=== PATIENT | female | born 1995 | race Caucasian/White ===

== ENCOUNTER 2016-06-19 07:36 | Emergency (ER) | payer MEDICAID ==
[2016-06-19 07:51] VITALS: BP 126/80
--- NOTE | 2016-06-19 08:22 | UC ---
Jake Mast [place], [facility] on 06/19/16 at 0809 . GI Bleed HPI - HPI Summary HPI Summary: HPI: Patient is a 20 y/o female who presents to the with hematuria for the past 2 days. She denies dysuria, but complaints of left lower back pain referred from her left inguinal area with left leg movement. Patient is 34 weeks ( primigravida) and is due on August 01. She reports vaginal discharge, but nothing unusual. Pt denies a hx of pyelonephritis. note: VSS, afebrile, post ox: 100%, 5/10 lower abdominal discomfort. Negative EtOH, former smoker. 34 weeks . Hep C. hx: depression. Visit review: previous UTI visits. No antibiotic allergies. Hx of asthma. Nurses note: Blood in urine. Lower abd cramping. - History Of Current Complaint Stated Complaint: BLOOD IN URINE CRAMPING 34 WEEKS PREG Time Seen by Provider: 06/19/16 07:41 Hx Obtained From: Patient Hx Last Menstrual Period: 10/26/15 Onset/Duration: Gradual Onset, Lasting Days Severity Initially: Moderate Severity Currently: Moderate Associated Pain: Discrete @ - Left back pain. Associated Signs And Symptoms: Positive: Other - Hematuria. 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 Psychological History Of: Reports: Depression Other History Of: Hepatitis C - Surgical History Surgical History: None - Family History Known Family History: Positive: Cardiac Disease, Hypertension, Diabetes - Social History Alcohol Use: None Substance Use Type: None Smoking Status (MU): Former Smoker Type: Cigarettes Amount Used/How Often: 1/2 ppd Length of Time of Smoking/Using Tobacco: 2 years Have You Smoked in the Last Year: Yes When Did the Patient Quit Smoking/Using Tobacco: 12/2014 Household Exposure Type: Cigarettes - Immunization History Most Recent Influenza Vaccination: years ago Most Recent Tetanus Shot: UNSURE Most Recent Pneumonia Vaccination: never Review of Systems Constitutional: Negative Skin: Other - Rash on medial aspect of right thigh. Genitourinary: Hematuria All Other Systems Reviewed And Are Negative: Yes Physical Exam Triage Information Reviewed: Yes Appearance: Well-Appearing, No Pain Distress, Well-Nourished Vital Signs: Initial Vital Signs Temp 97.6 F 06/19/16 07:38 Pulse 87 06/19/16 07:38 Resp 16 06/19/16 07:38 BP 126/80 06/19/16 07:38 Pulse Ox 100 06/19/16 07:38 Vital Signs Reviewed: Yes Eyes: Positive: Conjunctiva Clear ENT: Positive: Hearing grossly normal, Pharynx normal, TMs normal. Negative: Muffled/hoarse voice Neck: Positive: Supple, Nontender, No Lymphadenopathy Respiratory: Positive: Chest non-tender, Lungs clear, Normal breath sounds, No respiratory distress Cardiovascular: Positive: RRR, No Murmur Abdomen Description: Positive: Nontender, Other: - No discomfort over the bladder. LOCALIZED TENDERNESS OF INGUINAL REGION ON THE LEFT, PRECIPITATED BY FLEXION OF HIP AND RADIATES TO LOWER BACK.. Negative: CVA Tenderness (R), CVA Tenderness (L) Bowel Sounds: Positive: Present Musculoskeletal: Positive: Strength Intact, Other: - MART. Neurological: Positive: Alert Psychological: Positive: Age Appropriate Behavior Skin: Positive: rashes - MACULOPAPULAR RASH ON INNER ASPECT OF RIGHT THIGH WITH A MIRROR RASH ON THE LEFT INNER THIGH. Bleed Course/Dx - Course Course Of Treatment: Differential diagnosis: Pyelonephritis vs abd pain vs UTI. - Differential Dx/Diagnosis Provider Diagnoses: UTI. Contact dermatitis. Discharge - Discharge Plan Condition: Stable Disposition: HOME Prescriptions: Amoxicillin (*) [Amoxicillin 875 MG (*)] 875 mg PO BID #10 tab MDD 2 Patient Education Materials: Urinary Tract Infection in (ED) Additional Instructions: WE DISCUSSED: You have a bladder infection. I have given you amoxicillin for five days, one pill twice a day. Re check in 2 days if you are not improved. You may need a different antibiotic depending on your urine culture. Use hydrocortisone and an anti-fungal on your rash on both sides of your inner thighs. Re check at any time for increased pain or temperature. The documentation as recorded by the Jake villarreal,[place] accurately reflects the service I personally performed and the decisions made by me, Dillon Mcneil MD.
== END 2016-06-19 08:11 | disposition home or self-care (01) ==
LOC: UCEAST 07:36
DX: O99.89 Other specified diseases and conditions complicating pregnancy, childbirth and the puerperium (principal); R31.9 Hematuria, unspecified; O99.713 Diseases of the skin and subcutaneous tissue complicating pregnancy, third trimester; L25.9 Unspecified contact dermatitis, unspecified cause; Z3A.34 34 weeks gestation of pregnancy; Z88.5 Allergy status to narcotic agent; Z87.891 Personal history of nicotine dependence; Z86.19 Personal history of other infectious and parasitic diseases
CPT/HCPCS: 81003; 87086; 99212; G0463

== ENCOUNTER 2017-03-17 19:15 | Emergency (ER) | payer OTHER ==
[2017-03-17 19:29] VITALS: BP 110/63
--- NOTE | 2017-03-17 19:47 | UC ---
Complaint Female HPI - HPI Summary HPI Summary: 21 y/o female presents to the urgent care c/o vaginal discharge with itchiness. Pt reports she went to [facility] last Tuesday03/11/2017 for STD's screening and Dx BV and Rx Metronidazole PO. she started to take ABX on Tuesday and her vaginal discharge has worsen for the past 2 days. She thinks she has a yeast infection. [facility] and she wa [facility] D[facility]. It helped a little but she wants to make sure it is a yeast infection. She had Hx of Herpes and chlamydia but she was treated. She also has frequency and burning on urination. Pt denies fever, lower back pain, pelvic pain. chest pain, abdominal pain,N/V/D - History Of Current Complaint Chief Complaint: UCGU Stated Complaint: VAGINAL RASH Time Seen by Provider: 03/17/17 19:31 Hx Obtained From: Patient Hx Last Menstrual Period: 02/20/17 ?: No Onset/Duration: Gradual Onset, Lasting Weeks - 1 week, Still Present, Worse Since - 2 days Timing: Constant, Lasting Days Severity Initially: Mild Severity Currently: Moderate Pain Intensity: 4 Pain Scale Used: 0-10 Numeric Character: Burning - and itchiness Alleviating Factor(s): Other - diflucan PO Associated Signs And Symptoms: Positive: Vaginal Discharge, Genital Swelling. Negative: Fever, Back Pain, Vaginal Bleeding/Discharge - Risk Factors Ectopic Risk Factor: Negative Ovarian Torsion Risk Factor: Negative - Allergies/Home Medications Allergies/Adverse Reactions: Allergies Allergy/AdvReac Type Severity Reaction Status Date / Time Tramadol AdvReac Severe See Comment Verified 03/17/17 19:21 Home Medications: Home Medications metroNIDAZOLE TAB* [Flagyl 250 mg TAB*] 250 mg BID 03/17/17 [History Confirmed 03/17/17] PMH/Surg Hx/FS Hx/Imm Hx Previously Healthy: Yes Other GI/ History: Hep C , herpes, chlamydia Other History Of: Hepatitis C - Surgical History Surgical History: None - Family History Known Family History: Positive: Cardiac Disease, Hypertension, Diabetes - Social History Occupation: Employed Full-time Lives: With Family Alcohol Use: None Substance Use Type: None Substance Use Comment - Amount & Last Used: previous intravenous drug use; Hep C positive 2013 Smoking Status (MU): Former Smoker Type: Cigarettes Amount Used/How Often: 1/2 ppd Length of Time of Smoking/Using Tobacco: 2 years Have You Smoked in the Last Year: Yes When Did the Patient Quit Smoking/Using Tobacco: 12/2014 Household Exposure Type: Cigarettes - Immunization History Most Recent Influenza Vaccination: 03/2016 Most Recent Tetanus Shot: UNSURE Most Recent Pneumonia Vaccination: never Review of Systems Constitutional: Negative Skin: Negative Eyes: Negative ENT: Negative Respiratory: Negative Cardiovascular: Negative Gastrointestinal: Negative Genitourinary: Frequency, Urgency, Vaginal/Penile Burning, Vaginal/Penile Itching, Vaginal/Penile Discharge, Ulceration/Lesion - rash in the labia majora that erickson at itches Motor: Negative Neurovascular: Negative Musculoskeletal: Negative Neurological: Negative Psychological: Negative Is Patient Immunocompromised?: No All Other Systems Reviewed And Are Negative: Yes Physical Exam Triage Information Reviewed: Yes Vital Signs: Initial Vital Signs Temp 99.4 F 03/17/17 19:24 Pulse 84 03/17/17 19:24 Resp 18 03/17/17 19:24 BP 110/63 03/17/17 19:24 Pulse Ox 100 03/17/17 19:24 - Additional Comments General: Normotensive, in no acute distress. Head: Normocephalic, no lesions. Eyes: PERRLA, EOM's full, conjunctivae clear, fundi grossly normal. Ears: EAC's clear, TM's normal. Nose: Mucosa normal, no obstruction. Throat: Clear, no exudates, no lesions. Neck: Supple, no masses, no thyromegaly, no bruits. Chest: Lungs clear, no rales, no rhonchi, no wheezes. Heart: RR, no murmurs, no rubs, no gallops. Abdomen: Soft, no tenderness, no masses, BS normal. : Normal, no lesions, no discharge, no hernias noted. Pelvic: I was assisted by Nurse. External genitalia erythemaotus eruption w/ some scattered vesicles on both labia majora LF>RT. severe tenderness to palpation. swab sample taken from rash. Speculum exam: The vaginal malone are within normal limits w/ white creamy cottage cheese vaginal discharge vaginal discharge, no the lesions or rashes. The cervix is closed with no lesions or masses. There is no CMT's, and no adnexal masses. Rectal: No lesions, no hemorrhoids, Back: Normal curvature, no tenderness. Extremities: FROM, no deformities, no edema, no erythema. Neuro: Physiological, no localizing findings. Skin: Normal, no rashes, no lesions noted. Complaint Female Dx - Course Course Of Treatment: 21 y/o female presents to the urgent care c/o vaginal discharge with itchiness. Pt reports she went to [facility] last 03/11[facility]2017 for STD's screening and Dx BV and Rx Metronidazole PO. she started to take ABX on Tuesday and her vaginal discharge has worsen for the past 2 days. She thinks she has a yeast infection. She called [facility] and she wa Rx Diflucan. It helped a little but she wants to make sure it is a yeast infection. She had Hx of Herpes and chlamydia but she was treated. She also has frequency and burning on urination. Pt denies fever, lower back pain, pelvic pain. chest pain, abdominal pain,N/V/D. Hx obtained. Swab taken from genital rash and blisters and sent to lab for wound culture to r/o herpes. UA: 2+ trace leukoesterase, trace blood. DR Padilla consulted on Pt;s genital rash and she recommended Tx with Acyclovir PO. Pt given first dose of Acyclovir PO at the clinic to Tx prophylactically Herpes . Pt tolerated well mediction. Rx Acyclovir PO, Fluconazole PO for Candidiasis. Rx Ketoconazole toipical cream to Tx other part of the rash that looks Tinea crutis.Urine sent for culture to r/o any abnomality.Pt educated on STD's and protection. Pt advised to f/u results of STDs screening and PAP done at [facility] about 1 week ago. Advised she will be notified if any abnormal result from lab. Pt understood and agreed with plan of care. - Differential Dx/Diagnosis Differential Diagnosis/HQI/PQRI: Cervicitis, Renal Colic, Sexually Transmitted Disease, Urinary Tract Infection, Other - vaginosis Provider Diagnoses: 1- genital rash r/o herpes simplex II. 2- Bulbo vaginal Candidiasis - Physician Notifications Discussed Patient Care With: Terra Padilla - DR Padilla agreed with Pt's plan of care Discharge - Discharge Plan Condition: Stable Disposition: HOME Prescriptions: Amoxicillin/Clavulanate TAB* [Augmentin TAB 875*] 875 mg PO BID #20 tab Fluconazole [Diflucan 150 MG (NF)] 150 mg PO ONCE #1 tab Fluconazole [Diflucan 150 MG (NF)] 150 mg PO ONCE #1 tab Ketoconazole 2 % CREAM (NF) [Nizoral 2% CREAM (NF)] 1 applic TOPICAL BID #1 tube ValACYclovir (*) [Valtrex 1 GM(*)] 1 gm PO BID #20 tab Patient Education Materials: Genital Herpes Simplex (ED), Vulvovaginal Candidiasis (ED) Referrals: [facility] [place]] - 2 Days No Primary Care Phys,NOPCP [Primary Care Provider] - Additional Instructions: 1- Please take Valacyclovir PO x 10 days as directed, 2- Apply the Ketoconazole topical cream in the ring rash as directed to alleviate symptoms. Take the Diflucan PO to alleviate vaginal discharge. finish the Metronidazole PO 2- Sample and Blood sent to lab if any abnormality, you will be notified for further treatment. 3-If symptoms do not improve please return to the urgent care or f/u with her PCP in 2-3 days. However is you develop fever severe pain and infection is worsen please go immediately to the ER for further treatment.
[2017-03-17] MEDS ORDERED: Acyclovir* 400 MG TAB PO ONE (20:47)
[2017-03-17] MEDS ORDERED: Acyclovir* 200 MG CAP PO ONE (20:59)
[2017-03-19 13:12] LABS: Herpes Simplex Virus I IgG AB Positive (Negative); Herpes Simplex Virus II IgG AB Equivocal (Negative)
--- NOTE | 2017-03-19 15:50 | UC ---
Progress - Progress Note Progress Note: call patient HSV 1 (+) and preliminary urine cx showed staph/strep so I will call in augmentin.
--- NOTE | 2017-03-20 16:41 | UC ---
Progress - Progress Note Progress Note: call patient HSV 1 (+) and preliminary urine cx showed staph/strep so I will call in augmentin. 03/20/17 ucx showed staph and Augmentin sensitive
== END 2017-03-17 20:53 | disposition home or self-care (01) ==
LOC: UCEAST 19:15
DX: B37.3 Candidiasis of vulva and vagina (principal); Z86.19 Personal history of other infectious and parasitic diseases; R35.0 Frequency of micturition; R30.0 Dysuria; Z88.5 Allergy status to narcotic agent; Z87.891 Personal history of nicotine dependence
CPT/HCPCS: 81003; 86695; 86696; 87077; 87086; 87186; 87529; 99212; A9270-GY; G0463

== ENCOUNTER 2017-04-30 12:16 | Emergency (ER) | payer SELFPAY ==
[2017-04-30 14:07] VITALS: BP 139/83
--- NOTE | 2017-04-30 14:19 | UC ---
Nausea/Vomiting/Diarrhea HPI - HPI Summary HPI Summary: Pt presents with vomiting and diarrhea since last night. She has not vomited yet today. Her son is also sick with the similar complaints, but he is well today. She has eaten toast and soup today without difficulties. She says that she still feels nauseous with mild epigastric pain. Denies fever, chills, SOB, chest pain, dysuria, hematuria, vaginal pain/bleeding, pelvic pain, or recent illness. - History of Current Complaint Chief Complaint: UCGI Stated Complaint: VOMITTING Time Seen by Provider: 04/30/17 14:18 Hx Obtained From: Patient Hx Last Menstrual Period: 02/20/17 Onset/Duration: Sudden Onset Timing: Constant Severity Initially: Mild Severity Currently: Mild Pain Intensity: 3 Pain Scale Used: 0-10 Numeric Location: Epigastric Character: Cramping - Allergies/Home Medications Allergies/Adverse Reactions: Allergies Allergy/AdvReac Type Severity Reaction Status Date / Time Tramadol AdvReac Severe See Comment Verified 04/30/17 14:07 PMH/Surg Hx/FS Hx/Imm Hx Previously Healthy: Yes Other History Of: Hepatitis C - Surgical History Surgical History: None - Family History Known Family History: Positive: None, Cardiac Disease, Hypertension, Diabetes - Social History Lives: With Family Alcohol Use: Occasionally Substance Use Type: None Substance Use Comment - Amount & Last Used: previous intravenous drug use; Hep C positive 2013 Smoking Status (MU): Former Smoker Type: Cigarettes Amount Used/How Often: 1/2 ppd Length of Time of Smoking/Using Tobacco: 2 years Have You Smoked in the Last Year: Yes When Did the Patient Quit Smoking/Using Tobacco: 12/2014 Household Exposure Type: Cigarettes - Immunization History Most Recent Influenza Vaccination: 03/2016 Most Recent Tetanus Shot: UNSURE Most Recent Pneumonia Vaccination: never Review of Systems Constitutional: Negative Skin: Negative ENT: Negative Respiratory: Negative Cardiovascular: Negative Gastrointestinal: Abdominal Pain, Vomiting, Diarrhea, Nausea Neurovascular: Negative Musculoskeletal: Negative Neurological: Negative Psychological: Negative All Other Systems Reviewed And Are Negative: Yes Physical Exam Triage Information Reviewed: Yes Appearance: Well-Appearing, No Pain Distress, Well-Nourished Vital Signs: Initial Vital Signs Temp 97.9 F 04/30/17 14:03 Pulse 116 04/30/17 14:03 Resp 18 04/30/17 14:03 BP 139/83 04/30/17 14:03 Pulse Ox 98 04/30/17 14:03 Vital Signs Reviewed: Yes Eyes: Positive: Conjunctiva Clear. Negative: Conjunctiva Inflamed, Discharge ENT: Positive: Hearing grossly normal, Pharynx normal, TMs normal, Uvula midline. Negative: Pharyngeal erythema, Nasal congestion, Nasal drainage, TM bulging, TM dull, TM red, Tonsillar swelling, Tonsillar exudate, Sinus tenderness Neck: Positive: Supple, Nontender, No Lymphadenopathy Respiratory: Positive: Chest non-tender, Lungs clear, Normal breath sounds, No respiratory distress, No accessory muscle use Cardiovascular: Positive: No Murmur, Pulses Normal, Brisk Capillary Refill Abdomen Description: Positive: No Organomegaly, Soft, Other: - Mild epigatric TTP. Negative: CVA Tenderness (R), CVA Tenderness (L), Distended, Guarding, McBurney's Point Tenderness, Peritoneal Signs, Splenomegaly Bowel Sounds: Positive: Present Neurological: Positive: Alert. Negative: Fatigued Psychological: Positive: Age Appropriate Behavior Skin: Negative: rashes Naus/Vom/Diarrhea Course/Dx - Course Course Of Treatment: Suspect viral gastroenteritis. She has not vomited today and is already advancing her diet. Will provide her with zofran for her nausea. - Differential Dx/Diagnosis Provider Diagnoses: Viral gastroenteritis Condition At Discharge: Stable Discharge - Discharge Plan Condition: Stable Disposition: HOME Prescriptions: Ondansetron ODT TAB* [Zofran 4 MG Odt TAB*] 4 mg PO Q8H PRN #12 tab.odt PRN Reason: Nausea Patient Education Materials: Gastroenteritis (ED) Referrals: No Primary Care Phys,NOPCP [Primary Care Provider] - Additional Instructions: If you develop a fever, shortness of breath, chest pain, abdominal pain, new or worsening symptoms - please call your PCP or go to the ED. 1) Rest and drink plenty of water! 2) Advance diet as tolerated.
== END 2017-04-30 14:40 | disposition home or self-care (01) ==
LOC: UCEAST 12:16
DX: A08.4 Viral intestinal infection, unspecified (principal); Z88.5 Allergy status to narcotic agent; Z86.19 Personal history of other infectious and parasitic diseases; Z87.891 Personal history of nicotine dependence
CPT/HCPCS: 99212; G0463

== ENCOUNTER 2017-05-19 12:43 | Emergency (ER) | payer SELFPAY | END 2017-05-19 15:47 | disposition left against medical advice (07) | LOC: UCEAST 12:43 | DX: R56.9 Unspecified convulsions (principal); Z53.21 Procedure and treatment not carried out due to patient leaving prior to being seen by health care provider ==

== ENCOUNTER 2017-12-13 14:36 | Emergency (ER) | payer OTHER ==
[2017-12-13 14:47] VITALS: BP 132/72
--- NOTE | 2017-12-13 14:52 | UC ---
Complaint Female HPI - HPI Summary HPI Summary: 22 y/o female presents to the urgent care requesting STD's screening since her boyfriend was recently Dx w/ trichomonas. Pt has mild vaginal discharge w/ itchiness for the past week. LMP: 11/26/2017 w/ regular menstrual cycles and take OCP. Pt denies Hx of DTD's in the past. Pt denies pelvic pain, lower back pain,urinary symptoms, abdominal pain, N/V/D. - History Of Current Complaint Chief Complaint: UCGU Stated Complaint: VAGINAL DISCHARGE Time Seen by Provider: 12/13/17 14:50 Hx Obtained From: Patient Hx Last Menstrual Period: november 26, 2017 ?: No - taking OCP Onset/Duration: Gradual Onset, Lasting Days - 2 days, Still Present, Worse Since - today Timing: Constant Severity Initially: Mild Severity Currently: Moderate Pain Intensity: 2 Pain Scale Used: 0-10 Numeric Character: Burning Aggravating Factor(s): Urination Alleviating Factor(s): Nothing Associated Signs And Symptoms: Positive: Vaginal Discharge. Negative: Fever, Back Pain, Genital Swelling, Genital Blisters - Risk Factors Ectopic Risk Factor: Negative Ovarian Torsion Risk Factor: Negative - Allergies/Home Medications Allergies/Adverse Reactions: Allergies Allergy/AdvReac Type Severity Reaction Status Date / Time tramadol Allergy Severe seizures Verified 12/15/17 15:12 Home Medications: Home Medications Contol 1 tab PO DAILY WITH MEAL 12/13/17 [History Confirmed 12/13/17] PMH/Surg Hx/FS Hx/Imm Hx Previously Healthy: Yes Respiratory History: Asthma - controlled Other History Of: Hepatitis C - Surgical History Surgical History: None Surgery Procedure, Year, and Place: denies - Family History Known Family History: Positive: Cardiac Disease, Hypertension, Diabetes - Social History Occupation: Employed Full-time Lives: With Family Alcohol Use: Occasionally Substance Use Type: None Substance Use Comment - Amount & Last Used: previous intravenous drug use; Hep C positive 2013 Smoking Status (MU): Former Smoker Type: Cigarettes Amount Used/How Often: 1/2 ppd Length of Time of Smoking/Using Tobacco: 2 years Have You Smoked in the Last Year: Yes When Did the Patient Quit Smoking/Using Tobacco: 12/2014 Household Exposure Type: Cigarettes - Immunization History Most Recent Influenza Vaccination: 03/2016 Most Recent Tetanus Shot: UNSURE Most Recent Pneumonia Vaccination: never Review of Systems Constitutional: Negative Skin: Negative Eyes: Negative ENT: Negative Respiratory: Negative Cardiovascular: Negative Gastrointestinal: Negative Genitourinary: Frequency, Urgency, Vaginal/Penile Itching, Vaginal/Penile Discharge Motor: Negative Neurovascular: Negative Musculoskeletal: Negative Neurological: Negative Psychological: Negative Is Patient Immunocompromised?: No All Other Systems Reviewed And Are Negative: Yes Physical Exam - Summary Physical Exam Summary: Vital signs: reviewed General: well developed, well nourished female adolescent sitting in the examining table w/o any acute distress. Head: Normocephalic, no lesions. Eyes: PERRLA, EOM's full, conjunctiva clear, fundi grossly normal. Ears: EAC's clear, TM's normal. Nose: Mucosa normal, no obstruction. Throat: Clear, no exudates, no lesions. Neck: Supple, no masses, no thyromegaly, no bruits. Chest: Lungs clear, no rales, no rhonchi, no wheezes. Heart: RR, no murmurs, no rubs, no gallops. Abdomen: Soft, no tenderness, no masses, BS normal. : Normal, no lesions, no discharge, no hernias noted. Pelvic: I was electron gun inspector by nurse Lili. External genitalia within normal limits. There is no lesions there is no masses noted. Speculum exam: The vaginal malone are within normal limits w/ yellowish vaginal discharge, no the lesions or rashes. The cervix is closed with no lesions or masses. There is no CMT's, and no adnexal masses. Sample sent to Lab for G/C and Affirm panel. Rectal: No lesions, no hemorrhoids, Back: Normal curvature, no tenderness. Extremities: FROM, no deformities, no edema, no erythema. Neuro: Physiological, no localizing findings. Skin: Normal, no rashes, no lesions noted. Triage Information Reviewed: Yes Vital Signs: Initial Vital Signs Temp 98.5 F 12/13/17 14:42 Pulse 85 12/13/17 14:42 Resp 18 12/13/17 14:42 BP 132/72 12/13/17 14:42 Pulse Ox 100 12/13/17 14:42 Complaint Female Dx - Course Course Of Treatment: 22 y/o female presents to the urgent care requesting STD's screening since her boyfriend was recently Dx w/ trichomonas. Pt has mild vaginal discharge w/ itchiness for the past week. LMP: 11/26/2017 w/ regular menstrual cycles and take OCP. Pt denies Hx of DTD's in the past. Pt denies pelvic pain, lower back pain,urinary symptoms, abdominal pain, N/V/D.Hx obtained. PE:WNL,. I was assited By Nurse Lili for Speculum exam: The vaginal malone are within normal limits w/ white yellowish vaginal discharge, no lesions or rashes. The cervix is closed with mild surrounding erythema, no masses. There is no CMT's, and no adnexal masses. Sample sent to Lab for G/C, trichomonas and affirm panel. UA: + trace leukoesterase. Pt declines prophylactic treatment for GC/Chla. Only request Tx for thrichomonas. Pt given 2g of azithromycin PO at the [facility]. Pt tolerated well medication. Pt will be notified of results for further treatment. Pt educated on STD's and protection. Pt understood and agreed with plan of care. - Differential Dx/Diagnosis Differential Diagnosis/HQI/PQRI: Pelvic Inflammatory Disease, , Sexually Transmitted Disease, Urinary Tract Infection Provider Diagnoses: 1- Vaginitis. 2-Tricomoniasis. 2-Screening for STD's Discharge - Sign-Out/Discharge Documenting (check all that apply): Patient Departure - d/c home All imaging exams completed and their final reports reviewed: No Studies - Discharge Plan Condition: Stable Disposition: HOME Prescriptions: metroNIDAZOLE [Flagyl 500 MG TAB] 500 mg PO BID 7 Days #14 tablet Patient Education Materials: Trichomoniasis (ED), Sexually Transmitted Diseases in Adolescents (ED) Referrals: Petra Ponce MD [Primary Care Provider] - 3 Days Additional Instructions: 1-You are being treated prophylactically for trichomoniasis since your boyfriend recently Dx w/ it. Use condom while sexual intercourse until symptoms resolve completely 2- Specimen were sent to lab, if anything abnormal you will receive a call from us for further treatment. 3-If not improvement of symptoms please return to the urgent care or f/u with your [facility] in 3 days for further treatment - Billing Disposition and Condition Condition: STABLE Disposition: Home
[2017-12-13] MEDS ORDERED: metroNIDAZOLE TAB* 250 MG PO ONE (15:18)
--- NOTE | 2017-12-15 07:23 | UC ---
- Progress Note Progress Note: (+) gardnerella -- start flagyl 500 mg po bid for 7 days -- med sent Discharge - Sign-Out/Discharge Documenting (check all that apply): Patient Departure All imaging exams completed and their final reports reviewed: No Studies - Discharge Plan Condition: Stable Disposition: HOME Patient Education Materials: Trichomoniasis (ED), Sexually Transmitted Diseases in Adolescents (ED) Referrals: Petra Ponce MD [Primary Care Provider] - 3 Days Additional Instructions: 1-You are being treated prophylactically for trichomoniasis since your boyfriend recently Dx w/ it. Use condom while sexual intercourse until symptoms resolve completely 2- Specimen were sent to lab, if anything abnormal you will receive a call from us for further treatment. 3-If not improvement of symptoms please return to the urgent care or f/u with your [facility] in 3 days for further treatment - Billing Disposition and Condition Condition: STABLE Disposition: Home
== END 2017-12-13 15:45 | disposition home or self-care (01) ==
LOC: UCEAST 14:36
DX: N76.0 Acute vaginitis (principal); A59.9 Trichomoniasis, unspecified; Z11.3 Encounter for screening for infections with a predominantly sexual mode of transmission; Z88.5 Allergy status to narcotic agent; Z87.891 Personal history of nicotine dependence
CPT/HCPCS: 81003; 84702; 87077; 87086; 87480; 87491; 87510; 87591; 87661; 99212; A9270-GY; G0463

== ENCOUNTER 2017-12-15 14:34 | Emergency (ER) | payer OTHER ==
[2017-12-15 15:20] VITALS: BP 102/67
--- NOTE | 2017-12-15 16:15 | UC ---
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 of adverse reaction to valcyclovir - History Of Current Complaint Chief Complaint: UCGeneralIllness Stated Complaint: VAGINAL REDNESS AND ITCHINESS Time Seen by Provider: 12/15/17 15:45 Hx Obtained From: Patient Hx Last Menstrual Period: 11/26/17 ?: No Onset/Duration: Gradual Onset Timing: Constant Severity Initially: Moderate Severity Currently: Moderate Pain Intensity: 4 Character: Sharp, Burning Aggravating Factor(s): [place], Urination Associated Signs And Symptoms: Positive: Vaginal Discharge, Genital Swelling - Allergies/Home Medications Allergies/Adverse Reactions: Allergies Allergy/AdvReac Type Severity Reaction Status Date / Time tramadol Allergy Severe seizures Verified 12/15/17 15:12 PMH/Surg Hx/FS Hx/Imm Hx Previously Healthy: Yes Other History Of: Hepatitis C - Surgical History Surgical History: None Surgery Procedure, Year, and Place: denies - Family History Known Family History: Positive: None, Cardiac Disease, Hypertension, Diabetes - Social History Alcohol Use: Occasionally Substance Use Type: None Substance Use Comment - Amount & Last Used: previous intravenous drug use; Hep C positive 2013 Smoking Status (MU): Former Smoker Type: Cigarettes Amount Used/How Often: 1/2 ppd Length of Time of Smoking/Using Tobacco: 2 years Have You Smoked in the Last Year: Yes When Did the Patient Quit Smoking/Using Tobacco: 12/2014 Household Exposure Type: Cigarettes - Immunization History Most Recent Influenza Vaccination: 03/2016 Most Recent Tetanus Shot: UNSURE Most Recent Pneumonia Vaccination: never Review of Systems Constitutional: Negative Skin: Rash, Other - redness tenderness, vaginal mucosa, with pain and milky discharge Respiratory: Negative Cardiovascular: Negative Gastrointestinal: Negative Genitourinary: Vaginal/Penile Discharge, Vaginal/Penile Pain, Vaginal/Penile Tenderness, Ulceration/Lesion Is Patient Immunocompromised?: No All Other Systems Reviewed And Are Negative: Yes Physical Exam Triage Information Reviewed: Yes Appearance: Pain Distress Vital Signs: Initial Vital Signs Temp 36.8 C 12/15/17 15:18 Pulse 72 12/15/17 15:18 Resp 16 12/15/17 15:18 BP 102/67 12/15/17 15:18 Pulse Ox 100 12/15/17 15:18 Vital Signs Reviewed: Yes Eye Exam: Normal Eyes: Positive: Conjunctiva Clear Neck exam: Normal Neck: Positive: Supple Pelvic Exam: Positive: Other - external labia majora with redness irritation, mucosal erythema, clear to milky discharge , some redness of the surrounding perineum without discrete blisters Complaint Female Dx - Differential Dx/Diagnosis Provider Diagnoses: bacterial vaginosis, vaginal herpes simplex II Discharge - Sign-Out/Discharge Documenting (check all that apply): Patient Departure All imaging exams completed and their final reports reviewed: Yes - Discharge Plan Condition: Good Disposition: HOME Prescriptions: Acyclovir* [Zovirax 400 MG TAB*] 800 mg PO TID #12 tab Acyclovir* [Zovirax 400 MG TAB*] 400 mg PO BID #180 tab Patient Education Materials: Genital Herpes Simplex (ED) Referrals: Petra Ponce MD [Primary Care Provider] - - Billing Disposition and Condition Condition: GOOD Disposition: Home
--- NOTE | 2017-12-17 18:30 | UC ---
- Progress Note Progress Note: 12/17/2017 Urine culture negative, no growth No change. Jossie Steen PA-C Discharge - Sign-Out/Discharge Documenting (check all that apply): Patient Departure - D/c home All imaging exams completed and their final reports reviewed: Yes - Discharge Plan Condition: Good Disposition: HOME Prescriptions: Acyclovir* [Zovirax 400 MG TAB*] 800 mg PO TID #12 tab Acyclovir* [Zovirax 400 MG TAB*] 400 mg PO BID #180 tab Patient Education Materials: Genital Herpes Simplex (ED) Referrals: Petra Ponce MD [Primary Care Provider] - - Billing Disposition and Condition Condition: GOOD Disposition: Home
--- NOTE | 2017-12-19 19:40 | UC ---
- Progress Note Progress Note: neg HSV 1 neg HSV2 no change otisj 12/19/17 Discharge - Sign-Out/Discharge Documenting (check all that apply): Post-Discharge Follow Up All imaging exams completed and their final reports reviewed: Yes - Discharge Plan Condition: Good Disposition: HOME Prescriptions: Acyclovir* [Zovirax 400 MG TAB*] 800 mg PO TID #12 tab Acyclovir* [Zovirax 400 MG TAB*] 400 mg PO BID #180 tab Patient Education Materials: Genital Herpes Simplex (ED) Referrals: Petra Ponce MD [Primary Care Provider] - - Billing Disposition and Condition Condition: GOOD Disposition: Home
== END 2017-12-15 16:45 | disposition home or self-care (01) ==
LOC: UCEAST 14:34
DX: N76.0 Acute vaginitis (principal); A60.04 Herpesviral vulvovaginitis; Z88.5 Allergy status to narcotic agent; Z87.891 Personal history of nicotine dependence
CPT/HCPCS: 81003; 84702; 87086; 87529; 99212; G0463

== ENCOUNTER 2018-02-20 12:10 | Emergency (ER) | payer OTHER ==
--- NOTE | 2018-02-20 12:39 | UC ---
Ear Complaint HPI - HPI Summary HPI Summary: 22-year-old otherwise healthy female presents with 1 month worth of bilateral ear fullness/discomfort as well as minor congestion. She denies any fever, increased wax production, difficulty with hearing. She reports no cough, sputum production or runny nose at this time. She has no sinus tenderness. She is not a smoker. - History of Current Complaint Chief Complaint: UCEar Stated Complaint: EAR PAIN Time Seen by Provider: 02/20/18 12:25 Hx Obtained From: Patient Hx Last Menstrual Period: current Pain Intensity: 0 - Allergies/Home Medications Allergies/Adverse Reactions: Allergies Allergy/AdvReac Type Severity Reaction Status Date / Time tramadol Allergy Severe seizures Verified 02/20/18 12:22 metronidazole Allergy Rash Verified 02/20/18 12:22 PMH/Surg Hx/FS Hx/Imm Hx Previously Healthy: Yes Other History Of: Hepatitis C - Surgical History Surgical History: None Surgery Procedure, Year, and Place: denies - Family History Known Family History: Positive: None, Cardiac Disease, Hypertension, Diabetes - Social History Alcohol Use: Occasionally Substance Use Type: None Substance Use Comment - Amount & Last Used: previous intravenous drug use; Hep C positive 2013 Smoking Status (MU): Former Smoker Type: Cigarettes Amount Used/How Often: 1/2 ppd Length of Time of Smoking/Using Tobacco: 2 years Have You Smoked in the Last Year: Yes When Did the Patient Quit Smoking/Using Tobacco: 12/2014 Household Exposure Type: Cigarettes - Immunization History Most Recent Influenza Vaccination: 03/2016 Most Recent Tetanus Shot: UNSURE Most Recent Pneumonia Vaccination: never Review of Systems All Other Systems Reviewed And Are Negative: Yes Constitutional: Negative: Fever Skin: Positive: Negative Eyes: Positive: Negative ENT: Positive: Ear Ache, Nasal Discharge. Negative: Sore Throat, Sinus Pain/ Tenderness Respiratory: Positive: Negative Cardiovascular: Positive: Negative Gastrointestinal: Positive: Negative Physical Exam Triage Information Reviewed: Yes Appearance: Well-Appearing, No Pain Distress, Well-Nourished Vital Signs: Initial Vital Signs Temp 98.4 F 02/20/18 12:19 Pulse 85 02/20/18 12:19 Resp 16 02/20/18 12:19 BP 147/73 02/20/18 12:19 Pulse Ox 100 02/20/18 12:19 Eyes: Positive: Conjunctiva Clear ENT: Positive: Nasal congestion, Nasal drainage - mucus in posterior pharynx, TMs normal. Negative: Pharyngeal erythema, TM bulging, TM dull, TM red, Tonsillar swelling, Tonsillar exudate, Sinus tenderness Neck exam: Normal Neck: Positive: Supple, Nontender, No Lymphadenopathy Respiratory: Positive: Lungs clear Cardiovascular: Positive: RRR Musculoskeletal Exam: Normal Neurological Exam: Normal Skin Exam: Other - facial acne Ear Complaint Course/Dx - Course Course Of Treatment: Tympanic membranes are clear. There is no wax occluding the canals. There is no pain with movement of the pinna or mastoid redness/ tenderness. Minor congestion with posterior pharynx is case. Treat with steroid, Afrin, decongestant. Follow-up primary care physician. - Differential Dx/Diagnosis Differential Diagnosis/HQI/PQRI: Mastoiditis, Otitis Externa, Otitis Media, URI Provider Diagnoses: Upper respiratory infection. Bilateral ear discomfort. Elevated blood pressure Discharge - Sign-Out/Discharge Documenting (check all that apply): Patient Departure All imaging exams completed and their final reports reviewed: No Studies - Discharge Plan Condition: Improved Disposition: HOME Prescriptions: Guaifenesin/Pseudo 600/60(NF) [Mucinex D 600/60 (NF)] 1 tab PO BID #14 tab Oxymetazoline 0.05% NASAL SPR* [Afrin 0.05% NASAL SPRAY*] 1 spray NASAL Q12H PRN 3 Days #1 btl PRN Reason: Congestion predniSONE TAB* [Deltasone TAB*] 50 mg PO DAILY #5 tab Patient Education Materials: Upper Respiratory Infection (ED) Referrals: Petra Ponce MD [Primary Care Provider] - Additional Instructions: Humidifier while sleeping. Tylenol as needed for discomfort. Call today to schedule follow up with your primary care doctor. Return if worse, new symptoms or other concerns. - Billing Disposition and Condition Condition: IMPROVED Disposition: Home - Attestation Statements Document Initiated by Alfredito: No
[2018-02-20 14:01] VITALS: BP 147/73
== END 2018-02-20 12:37 | disposition home or self-care (01) ==
LOC: UCEAST 12:10
DX: J06.9 Acute upper respiratory infection, unspecified (principal); H92.03 Otalgia, bilateral; I10 Essential (primary) hypertension; Z87.891 Personal history of nicotine dependence
CPT/HCPCS: 99212; G0463

== ENCOUNTER 2018-06-10 11:43 | Emergency (ER) | payer OTHER ==
--- NOTE | 2018-06-10 11:48 | UC ---
Dental HPI - HPI Summary HPI Summary: 22 yo female presents with right lower tooth pain for the last 2 days. She tells me that she had a root canal here years ago and will get an infection here from time to time. She is eating and drinking well, but does have mild pain. She also mentions that she has some b/l ear itchiness and popping at times. Has been taking ibuprofen with good relief. Denies fever, chills, sinus symptoms, sore throat, rash. - History of Current Complaint Stated Complaint: TOOTH PAIN Time Seen by Provider: 06/10/18 11:46 Hx Obtained From: Patient Hx Last Menstrual Period: current Onset/Duration: Gradual Onset Severity: Moderate Pain Intensity: 6 Pain Scale Used: 0-10 Numeric - Allergies/Home Medications Allergies/Adverse Reactions: Allergies Allergy/AdvReac Type Severity Reaction Status Date / Time tramadol Allergy Severe seizures Verified 06/10/18 11:55 metronidazole Allergy Rash Verified 06/10/18 11:55 Home Medications: Home Medications Ibuprofen 400 mg PO Q6HR PRN 06/10/18 [History Confirmed 06/10/18] PMH/Surg Hx/FS Hx/Imm Hx - Additional Past Medical History Additional PMH: None Other History Of: Hepatitis C - Surgical History Surgical History: None Surgery Procedure, Year, and Place: denies - Family History Known Family History: Positive: None, Cardiac Disease, Hypertension, Diabetes - Social History Lives: With Family Alcohol Use: Occasionally Substance Use Type: None Substance Use Comment - Amount & Last Used: previous intravenous drug use; Hep C positive 2013 Smoking Status (MU): Former Smoker Type: Cigarettes Amount Used/How Often: 1/2 ppd Length of Time of Smoking/Using Tobacco: 2 years Have You Smoked in the Last Year: Yes When Did the Patient Quit Smoking/Using Tobacco: 12/2014 Household Exposure Type: Cigarettes - Immunization History Most Recent Influenza Vaccination: 03/2016 Most Recent Tetanus Shot: UNSURE Most Recent Pneumonia Vaccination: never Review of Systems All Other Systems Reviewed And Are Negative: Yes Constitutional: Positive: Negative Skin: Positive: Negative ENT: Positive: Dental Pain Respiratory: Positive: Negative Cardiovascular: Positive: Negative Gastrointestinal: Positive: Negative Neurovascular: Positive: Negative Neurological: Positive: Negative Psychological: Positive: Negative Physical Exam - Summary Physical Exam Summary: GENERAL: NAD. WDWN. No pain distress. SKIN: No rashes, sores, lesions, or open wounds. HEENT: Head: AT/NC Eyes: EOM intact. Conjunctiva clear without inflammation or discharge. Ears: Hearing grossly normal. TMs intact, no bulging, erythema, or edema. Mild clear fluid behind TM. Nose: Nasal mucosa pink and moist. NTTP maxillary and frontal sinus. Throat: Posterior oropharynx without exudates, erythema, or tonsillar enlargement. Uvula midline. NECK: Supple. Nontender. No lymphadenopathy. CHEST: CTAB. No r/r/w. No accessory muscle use. Breathing comfortably and in no distress. CV: RRR. Without m/r/g. Pulses intact. Cap refill <2seconds NEURO: Alert. PSYCH: Age appropriate behavior. Triage Information Reviewed: Yes Vital Signs: Vital Signs: Temp Pulse Resp BP Pulse Ox 98.6 F 83 18 127/75 100 06/10/18 11:54 06/10/18 11:54 06/10/18 11:54 06/10/18 11:54 06/10/18 11:54 Vital Signs Reviewed: Yes Dental: Positive: Percussion Tenderness @ - Tooth #30, Abscess @ - Tooth #30. Negative: Dental Fracture @, Cellulitis @, Cervical Lymphadenopathy, Bleeding Dental Complaint Course/Dx - Course Course Of Treatment: Tooth #30 abscess and b/l serous otitis media. - Differential Dx/Diagnosis Provider Diagnosis: Tooth abscess Discharge - Sign-Out/Discharge Documenting (check all that apply): Patient Departure All imaging exams completed and their final reports reviewed: No Studies - Discharge Plan Condition: Stable Disposition: HOME Patient Education Materials: Dental Abscess (ED), Serous Otitis Media (ED) Referrals: Vero Jewell MD [Primary Care Provider] - Additional Instructions: If you develop a fever, shortness of breath, chest pain, new or worsening symptoms - please call your PCP or go to the ED. - Billing Disposition and Condition Condition: STABLE Disposition: Home
[2018-06-10 11:59] VITALS: BP 127/75
== END 2018-06-10 12:05 | disposition home or self-care (01) ==
LOC: UCEAST 11:43
DX: K04.7 Periapical abscess without sinus (principal); H93.8X3 Other specified disorders of ear, bilateral; Z88.1 Allergy status to other antibiotic agents; Z88.5 Allergy status to narcotic agent; Z87.891 Personal history of nicotine dependence
CPT/HCPCS: 99212; G0463

== ENCOUNTER 2018-10-13 21:31 | Emergency (ER) | payer OTHER ==
[2018-10-13 21:37] VITALS: BP 118/75
== END 2018-10-13 21:53 | disposition home or self-care (01) ==
LOC: UCEAST 21:31
DX: Z53.8 Procedure and treatment not carried out for other reasons (principal)
CPT/HCPCS: 99211; G0463

== ENCOUNTER 2019-06-07 16:12 | Emergency (ER) | payer OTHER ==
[2019-06-07 16:41] VITALS: BP 118/73
--- NOTE | 2019-06-07 17:41 | UC ---
Ear Complaint HPI - HPI Summary HPI Summary: 23-year-old woman comes in with a chief complaint of having the tip of a Q-tip stuck in her left ear. An hour ago patient was cleaning her left ear she pulled out the Q-tip the cotton was gone off of the tip. Patient does feel some pressure in her ear. - History of Current Complaint Chief Complaint: UCEar Stated Complaint: QTIP STUCK IN EAR Time Seen by Provider: 06/07/19 17:09 Hx Last Menstrual Period: 2 weeks ago Pain Intensity: 3 - Allergies/Home Medications Allergies/Adverse Reactions: Allergies Allergy/AdvReac Type Severity Reaction Status Date / Time tramadol Allergy Severe seizures Verified 06/07/19 16:41 metronidazole Allergy Rash Verified 06/07/19 16:41 Home Medications: Home Medications Acyclovir* [Zovirax 200 MG CAP*] 06/07/19 [History] PMH/Surg Hx/FS Hx/Imm Hx Previously Healthy: Yes Other History Of: Hepatitis C - Surgical History Surgical History: None Surgery Procedure, Year, and Place: denies - Family History Known Family History: Positive: None, Cardiac Disease, Hypertension, Diabetes - Social History Alcohol Use: Occasionally Substance Use Type: None Substance Use Comment - Amount & Last Used: previous intravenous drug use; Hep C positive 2013 Smoking Status (MU): Former Smoker Type: Cigarettes Amount Used/How Often: 1/2 ppd Length of Time of Smoking/Using Tobacco: 2 years Have You Smoked in the Last Year: Yes When Did the Patient Quit Smoking/Using Tobacco: 12/2014 Household Exposure Type: Cigarettes - Immunization History Most Recent Influenza Vaccination: 03/2016 Most Recent Tetanus Shot: UNSURE Most Recent Pneumonia Vaccination: never Review of Systems All Other Systems Reviewed And Are Negative: Yes Constitutional: Positive: Negative Skin: Positive: Negative Eyes: Positive: Negative ENT: Positive: Ear Ache - see hpi Respiratory: Positive: Negative Cardiovascular: Positive: Negative Gastrointestinal: Positive: Negative Motor: Positive: Negative Neurovascular: Positive: Negative Musculoskeletal: Positive: Negative Neurological/Mental Status: Positive: Negative Psychological: Positive: Negative Is Patient Immunocompromised?: No Physical Exam Triage Information Reviewed: Yes Appearance: Well-Appearing, No Pain Distress, Well-Nourished Vital Signs: Initial Vital Signs Temp 98.3 F 06/07/19 16:36 Pulse 73 06/07/19 16:36 Resp 16 06/07/19 16:36 BP 118/73 06/07/19 16:36 Pulse Ox 100 06/07/19 16:36 Vital Signs Reviewed: Yes Eye Exam: Normal Eyes: Positive: Conjunctiva Clear ENT: Positive: Other - There is cotton in the ear canal the left ear. Neck: Positive: Supple Respiratory: Positive: No respiratory distress Musculoskeletal: Positive: Strength Intact, ROM Intact Neurological: Positive: Alert, Muscle Tone Normal Psychological: Positive: Age Appropriate Behavior Skin Exam: Normal Ear Complaint Course/Dx - Course Course Of Treatment: Left ear was irrigated by nursing. The cotton moved near the opening I was able to grasp it and remove it with alligator clips. I discussed using some eardrops a regular basis after showers and also and have the patient follow-up with ENT. - Differential Dx/Diagnosis Provider Diagnosis: Foreign body in left ear Discharge ED - Sign-Out/Discharge Documenting (check all that apply): Patient Departure All imaging exams completed and their final reports reviewed: No Studies - Discharge Plan Condition: Stable Disposition: HOME Patient Education Materials: Ear Foreign Body (ED) Referrals: Guicho Atkinson MD [Medical Doctor] - Thee Olivia MD [Medical Doctor] - Additional Instructions: FOLLOW UP WITH ENT. Use [id number] swimmer's ear ear drops after showering and bathing and swimming help avoid water buildup in the ear canals. GET REEVALUATED SOONER IF NOT IMPROVED OR WORSE OR ANY QUESTIONS OR CONCERNS. - Billing Disposition and Condition Condition: STABLE Disposition: Home
== END 2019-06-07 18:10 | disposition home or self-care (01) ==
LOC: UCEAST 16:12
DX: T16.2XXA Foreign body in left ear, initial encounter (principal); X58.XXXA Exposure to other specified factors, initial encounter; Y93.E8 Activity, other personal hygiene; Y92.9 Unspecified place or not applicable; Z88.1 Allergy status to other antibiotic agents; Z88.5 Allergy status to narcotic agent; Z87.891 Personal history of nicotine dependence
CPT/HCPCS: 69200; 99212; G0463